=== PATIENT | female | born 1975 | race Caucasian/White ===

== ENCOUNTER 2016-07-13 14:04 | Emergency (ER) | payer OTHER ==
[~2016-07-13] VITALS: Ht 177.8 cm; Wt 103.9 kg
[~2016-07-13 14:04] MED LIST: MOTRIN 800MG T800 MG PO; NOVOLIN-N1000 UNITS SC; PRENATAL1 TA2 PO; SYNTHROID0.025 MG PO; VITAMIN D1000 IU PO
[2016-07-13 14:08] VITALS: BP 104/67
--- NOTE | 2016-07-13 14:18 | ED GENERAL ADULT ---
History of Present Illness General Chief Complaint: Nausea, Vomiting, Diarrhea Stated Complaint: NVD/33 WEEKS PREG Source: patient Exam Limitations: no limitations Vital Signs & Intake/Output Vital Signs & Intake/Output Vital Signs Date Time Temp Pulse Resp B/P Pulse O2 O2 Flow FiO2 Ox Delivery Rate 07/13 1408 97.5 94 19 104/67 97 Room Air Allergies Coded Allergies: aspirin (Mild, UNKNOWN 07/13/16) Reconcile Medications Cholecalciferol (Vitamin D3) 1,000 IU TAB 1 TAB PO DAILY (Reported) Levothyroxine (Synthroid) 0.025 MG TAB 1 TAB PO DAILY HYPOTHYROID (Reported) PNV95/FERROUS FUMARATE/FA ( Formula Tablet) 1 TAB TAB 1 TAB PO DAILY (Reported) Yibuprofen (Motrin 800MG Tab) 800 MG TAB 800 MG PO Q6P PRN PAIN SCALE 4-6 Triage Note: 41 Y/O FEMALE C/O N/V/D SINCE 1800 LAST NIGHT. DENIES ABDONIMAL PAIN. SENT TO ED BY SHON AT [facility] - PT 33 WEEKS , , EDC 08/31/16. PT DENIES ANY SLURRY TANK TENDER RELATED COMPLAINTS. Triage Nurses Notes Reviewed? yes Onset: Gradual Duration: hour(s): (24) Timing: remote history Injury Environment: home Severity: moderate Severity Numbers: 5 No Modifying Factors: none : Yes Patient currently breastfeeds: No HPI: Patient is a 41-year-old female who is currently 33 weeks , due date is August 31 presenting to the emergency department sent in by her SLURRY TANK TENDER which chief complaint of nausea vomiting diarrhea the thing going on for the past 24 hours. Denies any blood in emesis or diarrhea. Denies any urinary frequency urgency or dysuria. She reports that her family was sick recently with similar symptoms, they are improving. Denies any fevers, positive chills. Positive nausea at this time. Last time she vomited was approximately 12 hours ago. Her OB was concerned that she may be getting dehydrated. Denies abdominal pain. (JEWEL MENENDEZ,GENE) Past History Travel History Traveled to [place] past 21 day No Medical History Any Pertinent Medical History? 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 No (GENE DRAKE) Review of Systems Review of Systems Constitutional: Reports: malaise. Comments Review of systems: See HPI, All other systems negative. Constitutional, no chills fever or weight loss HEENT: No visual changes no sore throat no congestion Cardiovascular: No chest pain ,palpitation Skin, no jaundice no rashes Respiratory: No dyspnea cough sputum or hemoptysis GI: Positive nausea, vomiting, diarrhea : No dysuria No hematuria Muscle skeletal: no back pain, no neck pain, Neurologic: No numbness no confusion Psych: No stress anxiety Immunology: No splenectomy or history of AIDS (GENE DRAKE) Physical Exam Physical Exam General Appearance: well developed/nourished, no apparent distress, alert, awake , comfortable Comments: Well-developed well-nourished person in no acute distress HEENT: Pupils equally round and reactive to light and accommodation. Nose is atraumatic.. Pharynx normal. No swelling or edema. Dry oral mucosa. Neck: Supple, no lymphadenopathy, normal range of motion without pain or tenderness Back: Nontender, no CVA tenderness. Cardiovascular: Regular rate and rhythms no murmurs rubs or gallops, normal JVP Respiratory: Chest nontender. No respiratory distress.breath sounds clear to auscultation bilaterally Abdomen: Soft, , nontender nondistended, no appreciable organomegaly. Normal bowel sounds. No ascites Extremity: No edema, no calf tenderness to palpation, normal and equal pulses. Neuro: Alert oriented x3 Skin: No appreciable rash on exposed skin, skin is warm and dry. Psych: Mood and affect is normal, memory and judgment is normal. Core Measures ACS in differential dx? No CVA/TIA Diagnosis: No Severe Sepsis Present: No Septic Shock Present: No (GENE DRAKE) Progress Differential Diagnoses I considered the following diagnoses in my evaluation of the patient: Dehydration, electrolyte abnormality, threatened , acute kidney injury, UTI, gastritis, gastroenteritis Plan of Care: Orders Procedure Date/time Status URINALYSIS 07/13 1421 Active LIPASE 07/13 1421 Active HUMAN BETA HCG TITRE 07/13 1421 Active COMPREHENSIVE METABOLIC PANEL 07/13 1421 Active CBC WITHOUT DIFFERENTIAL 07/13 1421 Complete AMYLASE 07/13 1421 Active Laboratory Tests 07/13/16 1437: Anion Gap 11, Estimated GFR > 60, BUN/Creatinine Ratio 15.7, Glucose 101 H, Calcium 8.7, Total Bilirubin 1.0, AST 26, ALT 29, Alkaline Phosphatase 74, Total Protein 6.4, Albumin 3.4 L, Globulin 3.0, Albumin/Globulin Ratio 1.1, Amylase 67, Lipase 69, Beta HCG, Quant Pending, CBC w Diff NO MAN DIFF REQ, RBC 4.18 L, MCV 91.9, MCH 31.5 H, RDW 13.5, MPV 8.1, Gran % 91.5 H, Lymphocytes % 4.4 L, Monocytes % 3.9, Eosinophils % 0.1, Basophils % 0.1, Absolute Granulocytes 12.7 H, Absolute Lymphocytes 0.6 L, Absolute Monocytes 0.5, Absolute Eosinophils 0, Absolute Basophils 0, PUBS MCHC 34.3 Initial ED EKG: none Comments: 07/13/2016 2:29:50 PM IV fluids initiated on arrival. Patient will elect to hold off on nausea medication. 07/13/2016 2:50:08 PM childbirth Center nursing came to check tones. They report that the heart tone is elevated and would like to bring the patient over to childbirth center to have her hydrated there and to monitor the baby. Discussed with Dr. ruiz and he agrees with plan. Patient be discharged from the emergency department and be transferred to the childbirth center via wheelchair. (GENE DRAKE) Departure Departure Time of Disposition: 1447 Disposition: OTHER GENERAL HOSPITAL (ACUTE) Condition: Stable Clinical Impression Primary Impression: Dehydration Secondary Impressions: Nausea and vomiting Referrals: BRYN WHIPPLE,DEVORA Stevens (PCP/Family) Additional Instructions: Patient a follow-up with recommendations made by the childbirth center. Return for worsening symptoms or concerns. Departure Forms: Customer Survey General Discharge Information (GENE DRAKE) PA/BEDSPRING ASSEMBLER Co-Sign Statement Statement: ED Attending supervision documentation- x I saw and evaluated the patient. I have also reviewed all the pertinent lab results and diagnostic results. I agree with the findings and the plan of care as documented in the PA's/BEDSPRING ASSEMBLER's documentation. [] I have reviewed the ED Record and agree with the PA's/BEDSPRING ASSEMBLER's documentation. [] Additions or exceptions (if any) to the PAs/BEDSPRING ASSEMBLER's note and plan are summarized below: [] (JOHN WHIPPLE,NOREEN) Critical Care Note Critical Care Note Critical Care Time: non-applicable (JEWEL MENENDEZ,GENE)
[2016-07-13 14:45] LABS: ABSOLUTE BASOPHIL COUNT 0 /CUMM (0.0-0.2); ABSOLUTE EOSINOPHIL COUNT 0 /CUMM (0.0-0.7); ABSOLUTE GRANULOCYTE CT 12.7 /CUMM (1.4-6.5); ABSOLUTE LYMPH COUNT 0.6 /CUMM (1.2-3.4); ABSOLUTE MONOCYTE COUNT 0.5 /CUMM (0.10-0.60); BASOPHIL % 0.1 % (0.0-2.0); EOSINOPHIL % 0.1 % (0-5); HEMATOCRIT 38.4 % (37-47); MEAN CORPUSCULAR HGB 31.5 PG (27.0-31.0); MEAN CORPUSCULAR HGB CONC 34.3 G/DL (33.0-37.0); MEAN CORPUSCULAR VOLUME 91.9 FL (81.0-99.0); MEAN PLATELET VOLUME 8.1 FL (7.4-10.4); PLATELET COUNT 171 /CUMM (130-400); RBC DISTRIBUTION WIDTH 13.5 % (11.5-14.5); RED BLOOD CELL CT 4.18 /CUMM (4.20-5.40); WHITE BLOOD CELL COUNT 13.9 /CUMM (4.8-10.8)
[2016-07-13 15:07] LABS: GRANULOCYTE % 91.5 % (42.2-75.2)
== END 2016-07-13 14:57 | disposition short-term general hospital (02) ==
LOC: ERH 14:04
PROVIDERS: Physician Assistant
DX: O99.89 Other specified diseases and conditions complicating pregnancy, childbirth and the puerperium (principal); E86.0 Dehydration; R11.2 Nausea with vomiting, unspecified; Z3A.33 33 weeks gestation of pregnancy

== ENCOUNTER 2016-08-29 06:34 | Inpatient (IN) | payer OTHER ==
[~2016-08-29] VITALS: Ht 177.8 cm; Wt 109.8 kg
[2016-08-29 08:42] VITALS: BP 117/78
[2016-08-29 09:20] LABS: ABSOLUTE BASOPHIL COUNT 0 /CUMM (0.0-0.2); ABSOLUTE EOSINOPHIL COUNT 0.1 /CUMM (0.0-0.7); ABSOLUTE GRANULOCYTE CT 8.8 /CUMM (1.4-6.5); ABSOLUTE MONOCYTE COUNT 0.7 /CUMM (0.10-0.60); BASOPHIL % 0.1 % (0.0-2.0); GRANULOCYTE % 82.6 % (42.2-75.2); HEMATOCRIT 36.3 % (37-47); MEAN CORPUSCULAR HGB 31.3 PG (27.0-31.0); MEAN PLATELET VOLUME 9.8 FL (7.4-10.4); PLATELET COUNT 142 /CUMM (130-400); RBC DISTRIBUTION WIDTH 14.2 % (11.5-14.5); RED BLOOD CELL CT 3.95 /CUMM (4.20-5.40); WHITE BLOOD CELL COUNT 10.6 /CUMM (4.8-10.8)
--- NOTE | 2016-08-29 10:53 | History & Physical ---
General Information and HPI MD Statement: I have seen and personally examined GOKUL HELMS and documented this H&P. The patient is a 41 year old female at [39] weeks and [5] days gestation who presented with a chief complaint of [onset of labor]. Source of Information: patient, old records Exam Limitations: no limitations History of Present Illness: 41 yo LMP 11/24/2016 LUX 08/31/2016 admitted in labor. No SROM, VNo bleeding - Cx initially 4 cm - in less than 2 hrs then 5 to 6 cm. AMA: NL !st Trim screen, declined CVS/Amnio, NL MSAFP, Neg anneuploidy scan @ [facility] Hypothyroidism: Synthroid 100 mcg/d Obesity: Initial BMI 30.1, @ term 34.3 (T Wt gain 29 lbs) Neg shoulder screen Gest DM good BS control neg shoulder screen Est F WT @ 38 wks 9# - NL Weekly testing IVF GEST- NL F ECHO Allergies/Medications Allergies: Coded Allergies: aspirin (Mild, UNKNOWN 08/29/16) Home Med list Cholecalciferol (Vitamin D3) 1,000 IU TAB 1 TAB PO DAILY (Reported) Levothyroxine (Synthroid) 0.025 MG TAB 1 TAB PO DAILY HYPOTHYROID (Reported) PNV95/FERROUS FUMARATE/FA ( Formula Tablet) 1 TAB TAB 1 TAB PO DAILY (Reported) Yibuprofen (Motrin 800MG Tab) 800 MG TAB 800 MG PO Q6P PRN PAIN SCALE 4-6 Compliance With Home Meds: GOOD Past History dispatcher service History : 2 Para: 01 Last Menstrual Period: 07/17/2015 Estimated Delivery Date: 08/31/2016 Past dispatcher service History: none Past Pregnancies Past Pregnancies: Date of Delivery: 02/28/2015 Gestational Age: 41 Length of Labor: 24 Weight: 7# 5 Type of Delivery: vaginal Anesthesia: epidural Medical History Blood Transfusion Hx: No Neurological: NONE EENT: NONE Cardiovascular: NONE Respiratory: NONE Gastrointestinal: NONE Hepatic: NONE Renal: NONE Musculoskeletal: NONE Psychiatric: NONE Endocrine: hypothyroidism, osteoporosis, prediabetes, Gest DM Blood Disorders: NONE Cancer(s): NONE 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 Home Who Do You Live With? spouse, child, self Primary Language: Upper Sorbian Smoking Status: Never Smoked ETOH Use: denies use Illicit Drug Use: denies illicit drug use Living Will? 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 unknown Review of Systems Review of Systems: Neg for cardiac Pulmonary GI complaints Exam & Diagnostic Data Last 24 Hrs of Vital Signs/I&O Vital Signs Date Time Temp Pulse Resp B/P Pulse O2 O2 Flow FiO2 Ox Delivery Rate 08/29 0842 98.5 88 16 117/78 99% RA Intake & Output 08/29 1600 08/29 0800 08/29 0000 Intake Total Output Total Balance Patient 242 lb Weight Obstetric Exam Wgt Gained During : 29 Pelvimetry: proven 7#5 Dilation (cm): 5 Effacement (%): 90 Station: 0 Membranes: intact Fluid: unknown Fundal Height (cm): 39 Multiple Gestation? No Contractions: Q 3 to 4 Infant #1 - FHR Baseline: 144 Category: 1 Estimated Weight: 9# Presentation: VTX Patient for Induction? No Physical Exam General Appearance Alert, Oriented X3, Cooperative Skin No Significant Lesion Cardiovascular Regular Rate Lungs Normal Air Movement Abdomen Normal Bowel Sounds, Soft, No Tenderness, No Hepatospenomegaly, utx F HT 39cm FHR 140-150 Cat 1 Irreg contractions nontender uterus Neurological Normal Gait, Normal Speech Extremities No Tenderness/Swelling Pelvic (FEMALE) Appearance Normal Labs Blood Type & Rh: O+ Antibody Screen: N Hct/Hgb & Platelets #1: 13/38.2/ 225,000 Hct/Hgb & Platelets #2: 11.7/36, 184,000 Rubella: IMM VDRL #1: N VDRL #2: N HbsAg: N HIV #1: N HIV #2 N 1 Hr P 3 Hr PG: REFERRED DR JENKINS W/ OBESITY AND PAST GEST DM- MANAGED W/ DIET NK HGB A1C Group B Strep: N Initial Ultrasound: 02/12/2016 S=D=U/S @ 11 2/7 WKS Anatomy Ultrasound: 04/12/2016 S=D=U/S NL ANATOMY NL F ECHO (IVF) Ultrasound for EFW: 08/29/2016 EST F WT 9# Genetic TestinST TRIM SCREEN DECLIMED CVS, AMNIO NL MSAFP FRAGILE X CARRIER Last 24 Hrs of Labs/Andriy: Laboratory Tests 08/29/16 0845: CBC w Diff NO MAN DIFF REQ, RBC 3.95 L, MCV 92.0, MCH 31.3 H, RDW 14.2, MPV 9.8, Gran % 82.6 H, Lymphocytes % 9.8 L, Monocytes % 6.5, Eosinophils % 1.0, Basophils % 0.1, Absolute Granulocytes 8.8 H, Absolute Lymphocytes 1.0 L, Absolute Monocytes 0.7 H, Absolute Eosinophils 0.1, Absolute Basophils 0, PUBS MCHC 34.0, Urine Color YEL, Urine Clarity CLEAR, Urine pH 6.0, Ur Specific [place] 1.025, Urine Protein NEG, Urine Ketones NEG, Urine Nitrite NEG, Urine Bilirubin NEG, Urine Urobilinogen 0.2, Ur Leukocyte Esterase NEG, Ur Microscopic SEDIMENT EXAMINED, Urine RBC 10-15 H, Urine WBC RARE, Ur Epithelial Cells FEW, Urine Hemoglobin LARGE H, Urine Glucose NEG Assessment/Plan Assessment/Plan: IUP @ TERM, HYPOTHYROIDISM, GEST DM, OBESITY IN LABOR (NEG SH SCREEN) PLAN EPIDURAL FOR PAIN RELIEF DISC W/ RN TO PLAN FOR POSSIBLE SHOULDER DYSTOCIA IN THIS SETTING MAINTAIN ADEQUATE CTX PATTERN NEEDED Soniya PEREZ As Ranked By This Provider Problem List: 1. Gestational diabetes 2. 3. Obesity (BMI 30.0-34.9) 4. Active labor 5. Hypothyroid Core Measures/Miscellaneous Gregg Catheter Date In: 08/29/16 Still Needed? Yes Venous Thromboembolism VTE Risk Factors: Age > 40, Obesity, / VTE Contraindications: Active Bleeding VTE Prophylaxis Ordered Inpt: Mechanical (ALPS/TEDS) (LOVENOX PP) VTE Diagnosis: No Beta Nelson Is Beta Nelson a Home Med? No If No, Why Not? N/A Antibiotics Is Patient on Antibiotics? No Attending MD Review Statement Attending Statement Attending MD Statement: examined this patient, discussed with family, discussed w/nursing Attending Assessment/Plan: Soniya PEREZ MD
--- NOTE | 2016-08-29 17:49 | Labor & Delivery Summary ---
Delivery Summary Vaginal Delivery: Vaginal: vERTEX SPONTANEOUS Episiotomy/Lacerations: Episiotomy/Lacerations: MIDLINE LACERATION Type: MIDLINE 2ND DEGREE Repair: 3-0 VICRYL Anesthesia: EPIDURAL/ LOCAL Placenta: Placenta: NUCHAL CORD X2 PARTIAL ABRUPTION OF PLACENTA W/ PUSHING- NL PLACENTA 3 VC Anesthesia: EPIDURAL Cord PH Value: N/A Baby's Weight: BABY BOY 9#0oz 4085 Apgars - 1 Min: 8 Apgars - 5 Min: 9 Additional Comments: MODERATE AMOUNT OF VAGINAL BLEEDING WITH THE LAST 3 CONTRACTIONS BEFORE DELIVERY. PT PUSHED VERY WELL. L.V. HEALTHY BABY BOY.(9#0oz 4085gms) APGARS 8/9/9. NUCHAL CORD X 2 CLAMPED AND CUT ON PERINEUM. SKIN TO SKIN W/ MOTHER IMMEDIATELY AFTER DELIVERY. PLACENTA DELIVERED FULLY 2 MIN AFTER DELIVERY OF THE BABY. LOW SEGMENT ATONY NOTED- MANAGED WITH UTERINE MASSAGE, MANUAL EVACUATION OF CLOT FROM THE LOW SEGMENT, IV PITOCIN, AND IM METHERGINE. EBL 550 RH+ IMMUNE [employer] TORRES
--- NOTE | 2016-08-30 08:46 | PN- OBGYN ---
Surgical Brief Attending Note Brief Attending Note: PPD#1 pt is resting in bed, no complaints, tolerate diet, void without difficulties, ambualting well PE: VSS General: NAD CV RRR Lungs CTA B/L Abdomen: soft, nontender, uterus firm,. fundus below umbilicus. lochia mild Ext: DCT(-), edema (+) A/P: 30yo, s/p , PPD #1 1. encourage ambulation, encourage . 2. RT PP care
[2016-08-30 10:04] LABS: ABSOLUTE BASOPHIL COUNT 0 /CUMM (0.0-0.2); ABSOLUTE EOSINOPHIL COUNT 0 /CUMM (0.0-0.7); ABSOLUTE GRANULOCYTE CT 7.2 /CUMM (1.4-6.5); ABSOLUTE LYMPH COUNT 1.6 /CUMM (1.2-3.4); ABSOLUTE MONOCYTE COUNT 0.6 /CUMM (0.10-0.60); BASOPHIL % 0.2 % (0.0-2.0); EOSINOPHIL % 0.4 % (0-5); GRANULOCYTE % 75.9 % (42.2-75.2); HEMATOCRIT 31.8 % (37-47); MEAN CORPUSCULAR HGB 30.8 PG (27.0-31.0); MEAN CORPUSCULAR HGB CONC 33.9 G/DL (33.0-37.0); MEAN CORPUSCULAR VOLUME 90.8 FL (81.0-99.0); MEAN PLATELET VOLUME 9.9 FL (7.4-10.4); PLATELET COUNT 140 /CUMM (130-400); RBC DISTRIBUTION WIDTH 14.1 % (11.5-14.5); RED BLOOD CELL CT 3.51 /CUMM (4.20-5.40); WHITE BLOOD CELL COUNT 9.5 /CUMM (4.8-10.8)
[2016-08-31] MEDS ORDERED: IBUPROFEN800 M1 PO (10:31)
--- NOTE | 2016-08-31 11:01 | PN- OBGYN ---
Surgical Brief Attending Note Brief Attending Note: NO COMPLAINTS. DOING WELL. PLANNING DISCHARGE TODAY. +NURSING +SMALL LOCHIA VSSAF FF@U-1 EXT: NO CALF TENDERNESS, 1+ PEDAL EDEMA Laboratory Tests 08/30/16 0830: CBC w Diff NO MAN DIFF REQ, RBC 3.51 L, MCV 90.8, MCH 30.8, RDW 14.1, MPV 9.9, Gran % 75.9 H, Lymphocytes % 17.2 L, Monocytes % 6.3, Eosinophils % 0.4, Basophils % 0.2, Absolute Granulocytes 7.2 H, Absolute Lymphocytes 1.6, Absolute Monocytes 0.6, Absolute Eosinophils 0, Absolute Basophils 0, PUBS MCHC 33.9 08/29/16 0845: CBC w Diff NO MAN DIFF REQ, RBC 3.95 L, MCV 92.0, MCH 31.3 H, RDW 14.2, MPV 9.8, Gran % 82.6 H, Lymphocytes % 9.8 L, Monocytes % 6.5, Eosinophils % 1.0, Basophils % 0.1, Absolute Granulocytes 8.8 H, Absolute Lymphocytes 1.0 L, Absolute Monocytes 0.7 H, Absolute Eosinophils 0.1, Absolute Basophils 0, PUBS MCHC 34.0, Urine Color YEL, Urine Clarity CLEAR, Urine pH 6.0, Ur Specific [place] 1.025, Urine Protein NEG, Urine Ketones NEG, Urine Nitrite NEG, Urine Bilirubin NEG, Urine Urobilinogen 0.2, Ur Leukocyte Esterase NEG, Ur Microscopic SEDIMENT EXAMINED, Urine RBC 10-15 H, Urine WBC RARE, Ur Epithelial Cells FEW, Urine Hemoglobin LARGE H, Urine Glucose NEG 08/29/16 0832: Hemoglobin A1c 5.1 Microbiology 08/29 844 URINE ROUT: Urine Culture - RES A/P PPD2. DOING WELL. DISCHARGE TO HOME. PRECAUTIONS ADVISED.
== END 2016-08-31 11:33 | DRG 774 ==
LOC: CBCO 06:34 → GNO 08:26
PROVIDERS: ADMIT Obstetrics & Gynecology
PROC: 0KQM0ZZ Repair Perineum Muscle, Open Approach (ICD-10-PCS; principal; 2016-08-29)
PROC: 10E0XZZ Delivery of Products of Conception, External Approach (ICD-10-PCS; principal; 2016-08-29)
DX: O70.1 Second degree perineal laceration during delivery (principal); O45.93 Premature separation of placenta, unspecified, third trimester; Z37.0 Single live birth; O69.81X0 Labor and delivery complicated by cord around neck, without compression, not applicable or unspecified; Z3A.39 39 weeks gestation of pregnancy; O99.284 Endocrine, nutritional and metabolic diseases complicating childbirth; E03.9 Hypothyroidism, unspecified; O24.420 Gestational diabetes mellitus in childbirth, diet controlled
CPT/HCPCS: GNOS; 36415; 81001; 87086; J0595; J1650; J1885; J2210; J7120